=== PATIENT | female | born 1995 | race Caucasian/White ===

== ENCOUNTER 2018-08-23 01:24 | Emergency (ER) | payer OTHER ==
[~2018-08-23] VITALS: Ht 162.6 cm; Wt 59.0 kg
[2018-08-23 01:29] VITALS: Ht 162.6 cm; Wt 59.0 kg
[2018-08-23 02:17] LABS: CALCIUM 10.2 mg/dL (8.5-10.1); CARBON DIOXIDE 22.8 mmol/L (21-32); CHLORIDE SERUM 100 mmol/L (98-107); CREATININE SERUM 0.9 mg/dL (0.6-1.0); GFR1 > 60 mL/min; GLUCOSE SERUM 104 mg/dL (74-106); POTASSIUM SERUM 3.7 mmol/L (3.5-5.1); SODIUM SERUM 135 mmol/L (136-145)
[2018-08-23 02:22] LABS: ALBUMIN 4.8 g/dL (3.4-5.0); ALKALINE PHOSPHATASE 84 U/L (46-116); ALT/SGPT 18 U/L (14-59); AST/SGOT 11 U/L (15-37); BILIRUBIN TOTAL 1.07 mg/dL (0.20-1.00); TOTAL PROTEIN, SERUM 8.5 g/dL (6.4-8.2)
[2018-08-23 02:24] LABS: BASOPHIL % 0.7 % (0-2); RED CELL DISTRIBUTION WIDTH 12.2 % (11.5-14.5)
[2018-08-23 02:34] LABS: PLATELET COUNT 436 x10^3mcL (130-400)
[2018-08-23 03:26] VITALS: BP 124/67
== END 2018-08-23 03:26 | disposition home or self-care (01) ==
LOC: ED 01:24
PROVIDERS: Emergency Medicine
DX: F41.9 Anxiety disorder, unspecified (principal); F19.10 Other psychoactive substance abuse, uncomplicated; Z88.0 Allergy status to penicillin; Z90.89 Acquired absence of other organs
CPT/HCPCS: J2060; J7030; Q0092

== ENCOUNTER 2018-08-23 21:55 | Emergency (ER) | payer OTHER ==
[~2018-08-23] VITALS: Ht 162.6 cm; Wt 56.2 kg
[2018-08-23 23:35] LABS: PLATELET COUNT 365 x10^3mcL (130-400); RED CELL DISTRIBUTION WIDTH 13.1 % (11.5-14.5)
[2018-08-23 23:43] LABS: BASOPHIL % 0 % (0-2)
[2018-08-23 23:45] LABS: CALCIUM 9.4 mg/dL (8.5-10.1); CARBON DIOXIDE 20.4 mmol/L (21-32); CHLORIDE SERUM 102 mmol/L (98-107); CREATININE SERUM 0.9 mg/dL (0.6-1.0); GFR1 > 60 mL/min; GLUCOSE SERUM 94 mg/dL (74-106); POTASSIUM SERUM 3.5 mmol/L (3.5-5.1); SODIUM SERUM 136 mmol/L (136-145)
[2018-08-23 23:49] LABS: ALBUMIN 4.2 g/dL (3.4-5.0); ALKALINE PHOSPHATASE 66 U/L (46-116); ALT/SGPT 16 U/L (14-59); AST/SGOT 9 U/L (15-37); BILIRUBIN TOTAL 1.1 mg/dL (0.20-1.00); TOTAL PROTEIN, SERUM 7.8 g/dL (6.4-8.2)
[2018-08-23 23:53] LABS: AMPHETAMINE QUAL UR POSITIVE (See below)
[2018-08-24 00:37] VITALS: BP 122/80
== END 2018-08-24 00:37 | disposition home or self-care (01) ==
LOC: ED 21:55
PROVIDERS: Emergency Medicine
DX: F19.10 Other psychoactive substance abuse, uncomplicated (principal); F41.9 Anxiety disorder, unspecified; Z88.0 Allergy status to penicillin; Z90.89 Acquired absence of other organs
CPT/HCPCS: G0480; J1200; J2060; J7030